=== PATIENT | female | born 1965 | race Caucasian/White ===

== ENCOUNTER → 2017-01-24 | Outpatient (CLI) | payer BC ==
[~2017-01-24] MED LIST: AZEL30SP NAE; CETI10TA84 PO; FERR1TAB23 PO; MTR600X PO; OXYC-57 PO
== END | disposition home or self-care (01) ==
LOC: C.PAPS 11:44
PROVIDERS: ATTEND Obstetrics & Gynecology
DX: Z01.419 Encounter for gynecological examination (general) (routine) without abnormal findings (principal)

== ENCOUNTER 2017-06-08 08:03 | Observation (INO) | payer BC ==
[2017-05-15 08:21] VITALS: BMI 35.0
[~2017-06-08] VITALS: Ht 160 cm; Wt 91.2 kg
[~2017-06-08 08:03] MED LIST changes: +ATROPINE SULFATE 0.1 MG/ML 5ML SYR IV PRN; +CEFAZOLIN 2000 MG/60 ML D5W 50 ML IV SCH; +EpHEDrine SULFATE INJ 50 MG/ML AMP IV PRN; +LACTATED RINGER'S 1000ML 1,000 ML IV SCH; -MTR600X PO; +ONDANSETRON INJ 2 MG/ML 2 ML VIAL IV PRN; -OXYC-57 PO
[2017-06-08] MEDS ORDERED: MIDAZOLAM HCL 1 MG/ML 2ML VIAL ONE (08:12)
[2017-06-08] MEDS ORDERED: FENTANYL CITRATE INJ 50 MCG/1 ML 2 ML VIAL ONE (08:12)
[2017-06-08] MEDS ORDERED: HYDROmorphone INJ 2 MG/ML SYR/VIAL ONE (08:13)
[2017-06-08 08:21] VITALS: BP 153/82; PULSE 69; TEMP 36.9; O2SAT 96; Ht 160 cm; Wt 91.2 kg
[2017-06-08] MEDS ORDERED: SCOPOLAMINE 1.5 MG TDSY TD ONE (09:08)
[2017-06-08 09:11] LABS: PREG INTERNAL NEGATIVE QC NEG CLEAR BACKGROUND; PREG INTERNAL POSITIVE QC POS CONTROL LINE
[2017-06-08] MEDS ORDERED: SCOPOLAMINE 1.5 MG TDSY TD SCH (09:15)
--- NOTE | 2017-06-08 09:27 | History & Physical Bridge Note ---
H&P Re-Evaluation Bridge Note: I have examined the patient, reviewed the History & Physical and in the interval since the performance of the History & Physical I have noted the following changes of clinical significance: No changes noted
[2017-06-08] MEDS ORDERED: BUPIVACAINE 0.5 % 5 MG/1 ML MPF 30ML VIAL ONE (10:03)
[2017-06-08] MEDS ORDERED: EpHEDrine SULFATE 50MG/5ML SYR ONE (11:58)
[2017-06-08] MEDS ORDERED: ONDANSETRON INJ 2 MG/ML 2 ML VIAL ONE (11:58)
[2017-06-08] MEDS ORDERED: PROPOFOL IV EMULSION 10 MG/ML 20 ML VIAL IV ONE (11:58)
[2017-06-08] MEDS ORDERED: LIDOCAINE HCL 2% 2 ML VIAL (20MG/ML) ONE (11:58)
[2017-06-08] MEDS ORDERED: GLYCOPYRROLATE INJ 0.2 MG/ML VIAL ONE ×2 (11:58→12:02)
[2017-06-08] MEDS ORDERED: METOCLOPRAMIDE HCL INJ 5 MG/ML 2 ML VIAL ONE (11:58)
[2017-06-08] MEDS ORDERED: NEOSTIGMINE METHYLSULFATE 5 MG/5 ML SYR ONE (11:58)
[2017-06-08] MEDS ORDERED: DiphenhydrAMINE HCL 50 MG/ML VIAL ONE (11:59)
[2017-06-08] MEDS ORDERED: LABETALOL HCL IV 5 MG/ML 20ML IV ONE (11:59)
[2017-06-08] MEDS ORDERED: ROCURONIUM BROMIDE 10 MG/ML 5 ML VIAL ONE (11:59)
[2017-06-08] MEDS ORDERED: LARYING-O-JET KIT (LTA) ONE ×2 (11:59)
[2017-06-08] MEDS ORDERED: METHYLENE BLUE 0.5% 10 ML VIAL ONE (12:02)
[2017-06-08] MEDS ORDERED: LACTATED RINGER'S 1000ML 1,000 ML IV SCH (12:11)
[2017-06-08] MEDS ORDERED: MAGNESIUM HYDROXIDE SUSP 30 ML UDC PO PRN (12:15)
[2017-06-08] MEDS ORDERED: IBUPROFEN 600 MG TAB PO PRN (12:15)
[2017-06-08] MEDS ORDERED: SIMETHICONE 80 MG CHEW PO PRN (12:15)
[2017-06-08] MEDS ORDERED: OXYCODONE/ACETAMINOPHEN 5-325 TAB PO PRN (12:15)
[2017-06-08] MEDS ORDERED: KETOROLAC TROMETHAMINE 30 MG/ML VIAL IV. PRN (12:15)
[2017-06-08] MEDS ORDERED: BISACODYL 10 MG SUPP PR PRN (12:15)
[2017-06-08] MEDS ORDERED: PROMETHAZINE HCL INJ 12.5 MG in SODIUM CHLORIDE 0.9% 50ML 50 ML IV PRN (12:15)
[2017-06-08] MEDS ORDERED: ONDANSETRON INJ 2 MG/ML 2 ML VIAL IV PRN (12:15)
[2017-06-08] MEDS ORDERED: ACETAMINOPHEN 325 MG TAB PO PRN (12:15)
[2017-06-08] MEDS ORDERED: PROMETHAZINE HCL INJ 25 MG in SODIUM CHLORIDE 0.9% 50ML 50 ML IV PRN (12:15)
[2017-06-08] MEDS ORDERED: MEPERIDINE HCL 50 MG/ML CARP IV PRN ×2 (12:15)
[2017-06-08] MEDS ORDERED: ZOLPIDEM TARTRATE 5 MG TAB PO PRN (12:15)
[2017-06-08] MEDS ORDERED: MTR600X PO (12:19)
[2017-06-08] MEDS ORDERED: OXYC-57 PO (12:19)
--- NOTE | 2017-06-08 12:19 | [facility] Post Operative Brief Note ---
Immediate Operative Summary Operative Date Jun 08, 2017. Pre-Operative Diagnosis Dysmenorrhea and fibroids Post-Operative Diagnosis same as preop Procedure(s) Performed Total laparoscopic hysterectomy for uterus greater than 250 grams, bilateral salpingectomy with use of Davinci. Surgeon Dr. Lott Account Resolution Expert Surgeon(s) Dr. Quiles Estimated Blood Loss 30 ml Findings Patient was taken back to the operating room prepped and draped in dorsolithotomy position in yellowfin Rad stirrups bladder drained with Dhillon catheter D care sewn into the cervix in the usual fashion uterus was approximately 12 weeks' size. Left changes supraumbilical incision made with scalpel usinghasson technique I was able to do a cut down into the peritoneal cavity without difficulty blunt-tipped Belle trocar placed balloon into the trocar was inflated CO2 gas used for insufflation findings Upper abdomen normal no sign of visceral organ injury Trendelenburg position then obtained uterus significantly enlarged mobile somewhat limited manipulation with the V care ureter seemed to follow a normal . 2 robotic ports were then placed under direct visualization on the right and one on the left left upper quadrant accessory port 11 mm blade was. Our #1 monopolar lizette in arm #2 Imani bipolar arm #3 Pro grasp. We remove the fallopian tubes on each side in the usual fashion through the accessory port and identified the ureter well away from the utero-ovarian left supply coagulated the utero-ovarian blood supply distal to the left ovary cut this with monopolar lizette. Round ligament was also coagulated and cut uterine vessels were then skeletonized bladder flap dissected away uterine vessels were quite elevated with the bipolar Imani taking care to avoid any close proximity to the ureter vessels were then cut the parous exact same process was used on the right once both vessels on uterine's were coagulated and cut made an anterior colpotomy with the monopolar lizette. Colpotomy was then completed uterus was able to be removed vaginally, this did require some manipulation of the uterus vaginally but we did not have to morcellate. Uterus came out intact no we deflated the Dhillon catheter prior to doing this. Of note methylene blue was given at this time. Sponge and a glove was placed in the vagina for pneumoperitoneum arm #1 became the M EGA needle forklift driver arm #2 the Cobra grasper. 2 well 90 day V lock suture was then placed in the accessory port cuff was closed from left to right back right to left suture was cut to the was no tail and there were at least 1 Center full-thickness vaginal mucosa bites. Needle removed through the accessory port after generous irrigation and suction Tisseel was applied hemostasis excellent the parous cystoscopy performed bladder appeared normal no sign of damage or injury good strong jets of blue dye from left and right ureter openings. Cystoscope removed new Dhillon catheter placed. At this stage the hemostasis was excellent Bell then removed from the vagina with sponge. We undocked the robot ports removed gas allowed to escape 0.5% Marcaine used to inject all the incisions fascia closed carefully with UR Vicryl Vicryl 0. Subcutaneous tissues reapproximated with 0 Vicryl on the umbilical and left upper quadrant incision 4-0 subcuticular Monocryl closure Dermabond applied sponge and instrument counts correct Specimens A: Uterus, cervix, bilateral tubes. Drains Dhillon Anesthesia General Complication(s) None Disposition Recovery Room / PACU
--- NOTE | 2017-06-08 12:20 | Discharge Instructions ---
Discharge Instructions Date of Service Jun 08, 2017. Admission Reason for Admission: Menorrhagia Discharge Discharge Diagnosis / Problem: menorrhagia Discharge Goals Goal(s): Routine recovery after surgery Activity Recommendations Activity Limitations: per Instructions/Follow-up section . Instructions / Follow-Up Instructions / Follow-Up POST OPERATIVE: BOWEL FUNCTION/MEDICATIONS: 1. Constipation pain and discomfort are the most common complaints 5-7 days after surgery. Points 2-6 address the things that can help. 2. Chewing gum can help stimulate the gut and help improve digestion and motility. 3. Milk of Magnesia 1-2 times per day until return of bowel function. 4. Colace is a stool softener that helps. Taking this 2-3 times per day until bowel function returns to normal is highly recommended. 5. Dulcolax is a laxative that may be used if several days have passed without a bowel movement. Alternatively Miralax may be used daily instead. 6. Drink plenty of fluids as this will also reduce constipation. 7. Narcotic pain medications will be prescribed by your physician. They are safe to use and we encourage you to use them. If you are not allergic, ibuprofen will also be prescribed. Many patients will be able to transition off of the narcotic medications to ibuprofen by postoperative day 3. ACTIVITY RECOMMENDATIONS: 1. Get plenty of rest and listen to your body. If you are tired, take a nap. 2. You may shower, but do not take a tub bath until you see your doctor at the 2 week post operative visit. 3. Absolutely NO intercourse and nothing in the vagina until you are examined by your doctor at the 6 week visit. At that visit it will be determined when such activities can be resumed. This can range from 6-12 weeks after your surgery depending on healing time. 4. The main physical activity in the first week should be walking. By the second week you can slowly increase activity. There are no limits on walking up and down stairs. 5. Do not lift more than 5-10 lbs for 4 weeks. Remember the "one-handed rule", i.e. if you can lift something with only one hand it's likely okay. 6. Minimize pharmaceutical worker like vacuuming and exercising for 4 weeks. "Overdoing it" can lead to incisions not healing, pain and vaginal bleeding , so again, listen to your body. 7. Driving can be resumed when you feel able. Do not drive within 24 hours of taking a narcotic medication. EXPECTATIONS: 1. Vaginal spotting, bleeding and discharge are common after surgery. There may even be an odor to the discharge which is often related to sutures used in the vagina. If you experience heavy vaginal bleeding, call the office number day or night [phone]. 2. Bladder discomfort is common after surgery from the catheter. This usually resolves in 1-2 weeks. 3. By the end of the 3rd or 4th week you should be feeling much better. It may take up to 6 weeks for your energy levels to return to normal. 4. Narcotic medications have side effects such as: dizziness, headache, nausea and/or vomiting. If you suspect your pain medication is causing problems, call our office and we may be able to prescribe an alternate medication. 5. The skin incisions are often covered with a liquid bandage. This will gradually peel off over time. CALL THE OFFICE IF YOU HAVE ANY OF THE FOLLOWIN. Temperature of 101 degrees or higher. 2. Severe abdominal or pelvic pain not relieved by pain medication. 3. Persistent nausea or vomiting. 4. Increased pain with urination or difficulty urinating. 5. Bright red bleeding that soaks more than 1 pad per hour. CONTACT PHONE NUMBERS: Main Office: [phone] Surgical Nurse: [phone] extension [phone] Avoid all tobacco products. If you need help to stop smoking, call [place]'s FREE QUITLINE at . This is a free call. Current Hospital Diet Patient's current hospital diet: Discharge Diet Recommended Diet: Regular Diet Procedures Procedures Performed: Total laparoscopic hysterectomy for uterus greater than 250 grams, bilateral salpingectomy with use of Davinci. Pending Studies Studies pending at discharge: no Medical Emergencies . Who to Call and When: Medical Emergencies: If at any time you feel your situation is an emergency, please call 911 immediately. . Non-Emergent Contact Non-Emergency issues call your: Department Of Mathematics Chair . . "Provider Documentation" section prepared by Yovani Lott. . VTE Core Measure Inpt VTE Proph given/why not?: Yazmin Lopez, [place]'s
[2017-06-08] MEDS ORDERED: TISSEEL FIBRIN SEALANT 4ML TOP ONE (12:23)
[2017-06-08] MEDS: FENTANYL CITRATE INJ 50 MCG/1 ML 2 ML VIAL IV PRN ×4 (12:39→12:55)
--- NOTE | 2017-06-08 12:47 | Anesthesiology Progress Note ---
Anesthesia Post Op Note Date & Time Jun 08, 2017 at 12:47 Vital Signs Pain Intensity: 0 Vital Signs Past 12 Hours Date Time Temp Pulse Resp B/P (MAP) Pulse Ox O2 Delivery O2 Flow Rate FiO2 06/08/17 12:30 59 16 147/79 98 Oxymask 10 06/08/17 12:22 36 70 16 143/75 99 Oxymask 10 06/08/17 08:21 36.9 69 18 153/82 (105) 96 Room Air Notes Mental Status: alert / awake / arousable, participated in evaluation Pt Amnestic to Procedure: Yes Nausea / Vomiting: adequately controlled Pain: adequately controlled Airway Patency, RR, SpO2: stable & adequate BP & HR: stable & adequate Hydration State: stable & adequate Anesthetic Complications: no major complications apparent
[2017-06-08] MEDS: HYDROmorphone INJ 1 MG/ML SYR IV PRN ×2 (13:00→13:05)
[2017-06-08 13:45] VITALS: BP 128/70; PULSE 56; TEMP 36.7; O2SAT 96
[2017-06-08 14:15] VITALS: BP 134/70; PULSE 57; TEMP 36.4; O2SAT 98
[2017-06-08 14:45] VITALS: BP 130/71; PULSE 66; TEMP 36.5; O2SAT 96
[2017-06-08] MEDS ORDERED: IV FLUIDS COMPLETED PRN (15:45)
[2017-06-08 15:47] VITALS: BP 124/70; PULSE 74; TEMP 36.5; O2SAT 95
[2017-06-08] MEDS: CHECK SCOPOLAMINE PATCH PLACEMENT SCH (16:00)
[2017-06-08 17:45] VITALS: BP 130/71; PULSE 72; TEMP 36.8; O2SAT 96
[2017-06-08] MEDS: DOCUSATE SODIUM 100 MG CAP PO SCH (21:31)
[2017-06-08] MEDS: OXYCODONE/ACETAMINOPHEN 5-325 TAB PO PRN (21:42)
[2017-06-09 00:05] VITALS: BP 121/60; PULSE 72; TEMP 37; O2SAT 95
[2017-06-09 03:15] VITALS: BP 114/59; PULSE 71; TEMP 37.1; O2SAT 96
[2017-06-09 06:42] LABS: BASO % 0.1 %; BASO ABS # 0.01 K/uL (0-0.2); COMPLETE YES; EOS % 0.4 %; HEMATOCRIT 32.5 % (37-47); IG% 0.3 %; LYMPH ABS # 2.03 K/uL (1.2-3.4); MEAN CORPUSCULAR HEMOGLOBIN 28.8 pg (25-34); MEAN CORPUSCULAR HGB CONC 32.3 g/dl (32-36); MEAN PLATELET VOLUME 9.7 fL (7.4-10.4); MONO % 8.8 %; NEUT % 73.4 %; PLATELET COUNT 368 K/uL (130-400); RED BLOOD COUNT 3.65 M/uL (4.2-5.4); WHITE BLOOD COUNT 11.97 K/uL (4.8-10.8)
[2017-06-09 07:45] VITALS: BP 116/70; PULSE 68; TEMP 36.9; O2SAT 96
[2017-06-09] MEDS: DOCUSATE SODIUM 100 MG CAP PO SCH (08:14)
[2017-06-09] MEDS: OXYCODONE/ACETAMINOPHEN 5-325 TAB PO PRN (08:15)
[2017-06-09] MEDS: CHECK SCOPOLAMINE PATCH PLACEMENT SCH ×2 (08:17)
[2017-06-09 08:54] VITALS: BP 116/70; PULSE 68; TEMP 36.9; O2SAT 96
--- NOTE | 2017-06-09 09:02 | OB/GYN Progress Note ---
STEEL ENGRAVER Progress Note Date of Service Jun 09, 2017. Subjective conversation w/ patient, physical exam Ambulation: ambulating normally Voiding: no voiding problems Passing Gas: Yes Diet Tolerance: Regular Diet Pain: controlled Review of Systems Constitutional: No problem reported Respiratory: No problem reported Cardiac: No problem reported Breast: No problem reported Abdomen: No problem reported Female : No problem reported Objective Vital Signs Date Time Temp Pulse Resp B/P (MAP) Pulse Ox O2 Delivery O2 Flow Rate FiO2 06/09/17 08:54 36.9 68 20 96 Room Air 06/09/17 07:45 Room Air 06/09/17 07:45 36.9 68 20 116/70 (85) 96 Room Air 06/09/17 03:15 37.1 71 20 114/59 (77) 96 Room Air 06/09/17 00:05 37.0 72 18 121/60 (80) 95 Room Air 06/09/17 00:05 95 Room Air 06/08/17 17:45 36.8 72 20 130/71 (90) 96 Room Air 06/08/17 17:45 96 Room Air 06/08/17 15:47 36.5 74 14 124/70 (88) 95 Nasal Cannula 1.0 06/08/17 14:45 36.5 66 18 130/71 (90) 96 Room Air 06/08/17 14:15 36.4 57 18 134/70 (91) 98 Room Air 06/08/17 13:45 96 Nasal Cannula 2.0 06/08/17 13:45 36.7 56 16 128/70 (89) 96 Nasal Cannula 2.0 06/08/17 13:45 96 Nasal Cannula 2.0 06/08/17 13:20 36.2 52 16 149/81 95 Room Air 06/08/17 13:10 36.2 63 16 122/71 95 Room Air 06/08/17 13:00 47 16 157/77 99 Room Air 06/08/17 12:50 51 16 135/74 98 Room Air 06/08/17 12:40 53 16 153/81 100 Oxymask 10 06/08/17 12:30 59 16 147/79 98 Oxymask 10 06/08/17 12:22 36 70 16 143/75 99 Oxymask 10 Physical Exam General Appearance: WELL-APPEARING, NO APPARENT DISTRESS Respiratory/Chest: no respiratory distress Cardiovascular: regular rate, rhythm Abdomen: non tender, soft Incision Description: Clean, Dry & Intact Extremities: normal inspection Laboratory Results Last 24 Hours Test 06/08/17 20:09 06/09/17 06:16 Hemoglobin 11.3 g/dL 10.5 g/dL Hematocrit 34.0 % 32.5 % White Blood Count 11.97 K/uL Red Blood Count 3.65 M/uL Mean Corpuscular Volume 89.0 fL Mean Corpuscular Hemoglobin 28.8 pg Mean Corpuscular Hemoglobin Concent 32.3 g/dl Platelet Count 368 K/uL Mean Platelet Volume 9.7 fL Neutrophils (%) (Auto) 73.4 % Lymphocytes (%) (Auto) 17.0 % Monocytes (%) (Auto) 8.8 % Eosinophils (%) (Auto) 0.4 % Basophils (%) (Auto) 0.1 % Neutrophils # (Auto) 8.80 K/uL Lymphocytes # (Auto) 2.03 K/uL Monocytes # (Auto) 1.05 K/uL Eosinophils # (Auto) 0.05 K/uL Basophils # (Auto) 0.01 K/uL RDW Standard Deviation 44.2 fL RDW Coefficient of Variation 13.4 % Immature Granulocyte % (Auto) 0.3 % Immature Granulocyte # (Auto) 0.03 K/uL Assessment and Plan Post-Op Day Number: 1 Continue Routine Care: POD#1 s/p robot-assisted laparoscopic hysterectomy Doing well postop. Vitals, labs stable. Feeling well. Discharge to home today. Discharge instructions reviewed. F/u 3w in office with Dr Lott.
--- NOTE | 2017-06-09 13:49 | DISCHARGE SUMMARY ---
Maria A had a total laparoscopic hysterectomy for an enlarged uterus 06/08/2017. Her surgery was uncomplicated. Her course in hospital was without difficulty. By postop day #1, she met criteria. At that time she was ambulating, tolerating an oral diet, passing flatus. No vaginal bleeding, no extremity pain. She was voiding well. PHYSICAL EXAMINATION: VITAL SIGNS: Stable. She was afebrile. Incision is clean, dry and intact. EXTREMITY EXAMINATION: Negative. IMPRESSION AND PLAN: Hemoglobin 10.5. Given Percocet and Motrin and told to follow up in the office. Discharge instructions reviewed.
== END 2017-06-09 09:35 | disposition home or self-care (01) ==
LOC: C.ACU 08:03 → C.MS4N 08:30
PROVIDERS: ADMIT Obstetrics & Gynecology; ATTEND Obstetrics & Gynecology
DX: D25.9 Leiomyoma of uterus, unspecified (principal); N83.8 Other noninflammatory disorders of ovary, fallopian tube and broad ligament; I10 Essential (primary) hypertension; E78.5 Hyperlipidemia, unspecified; Z87.891 Personal history of nicotine dependence; Z79.899 Other long term (current) drug therapy
CPT/HCPCS: 58573; S2900

== ENCOUNTER → 2017-09-14 | Outpatient (CLI) | payer BC ==
[~2017-09-14] MED LIST changes: -ATROPINE SULFATE 0.1 MG/ML 5ML SYR IV PRN; -CEFAZOLIN 2000 MG/60 ML D5W 50 ML IV SCH; -EpHEDrine SULFATE INJ 50 MG/ML AMP IV PRN; -FERR1TAB23 PO; -LACTATED RINGER'S 1000ML 1,000 ML IV SCH; +MTR600X PO; -ONDANSETRON INJ 2 MG/ML 2 ML VIAL IV PRN; +OXYC-57 PO
--- NOTE | 2017-09-14 15:37 | MAMMOGRAPHY REPORT ---
BILATERAL DIGITAL SCREENING MAMMOGRAM TOMOSYNTHESIS WITH CAD: 09/14/2017 CLINICAL HISTORY: Routine screening. Patient has no complaints. TECHNIQUE: Breast tomosynthesis in addition to standard 2D mammography was performed. Current study was also evaluated with a Computer Aided Detection (CAD) system. COMPARISON: Comparison is made to exams dated: 09/08/2016 mammogram, 09/03/2015 mammogram, 08/28/2014 mammogram, 08/15/2013 mammogram, 08/02/2012 mammogram, and 07/26/2011 ultrasound - [facility]. BREAST COMPOSITION: The tissue of both breasts is heterogeneously dense, which may obscure small mas ses. FINDINGS: No suspicious masses, calcifications, or areas of architectural distortion are noted in ei ther breast. There has been no significant interval change compared to prior exams. Scattered bilater al benign-appearing calcifications are not significantly changed. IMPRESSION: ACR BI-RADS CATEGORY 2: BENIGN There is no mammographic evidence of malignancy. A 1 year screening mammogram is recommended. The pa tient will receive written notification of the results. Approximately 10% of breast cancers are not detected with mammography. A negative mammographic report should not delay biopsy if a clinically suggestive mass is present. Sneha Lehman M.D. /:09/14/2017 08:24:13 Healthcare Social Worker: Zenobia FOSTER)(M), [facility] letter sent: Normal 1/2 BI-RADS Code: ACR BI-RADS Category 2: Benign
== END | disposition home or self-care (01) ==
LOC: C.MAMM 08:05
PROVIDERS: ATTEND Obstetrics & Gynecology
DX: Z12.31 Encounter for screening mammogram for malignant neoplasm of breast (principal)

== ENCOUNTER → 2017-11-16 | Day surgery (SDC) | payer BC, OTHER ==
[2017-10-24 13:12] VITALS: Ht 160 cm; Wt 90.0 kg
[~2017-11-16] VITALS: Ht 160 cm; Wt 90.0 kg
[~2017-11-16] MED LIST changes: +ATROPINE SULFATE 0.1 MG/ML 5ML SYR IV PRN; +EpHEDrine SULFATE INJ 50 MG/ML AMP IV PRN; +HYDR25TA5 PO; +IBUP-1050 PO; +LIDOCAINE HCL 2% 2 ML VIAL (20MG/ML) ONE; -MTR600X PO; -OXYC-57 PO; +PROPOFOL IV EMULSION 10 MG/ML 20 ML VIAL IV ONE; +SODIUM CHLORIDE 0.9% 500ML 500 ML IV ONE
--- NOTE | 2017-11-16 08:39 | Endo History and Physical ---
History & Physical Date of Service: Nov 16, 2017. Chief Complaint: Screening Referring Physician: Pro History of Present Illness 52 yo CF who presents for screening colonoscopy. Past Surgical History Hx Cardiac Surgery: No Hx Internal Defibrillator: No Hx Pacemaker: No Hx Abdominal Surgery: Yes (HYSTERECTOMY) Hx of Implantable Prosthesis: No Hx Post-Op Nausea and Vomiting: No Hx Cancer Surgery: No Hx Thoracic Surgery: No Hx Orthopedic: Yes (R CTR) Hx Urinary Tract Surgery: No Family History None Social History Smoking Status: Former Smoker Hx Substance Use: No Hx Alcohol Use: Yes (SELDOM) Allergies Coded Allergies: Corticosteroids (Verified Allergy, Severe, heart palpitations, dizziness, sweating, 11/16/17) Current Medications Reported Home Medications Medications Dose Route/Sig Max Daily Dose Days Date Category Advil (Ibuprofen) 200 Mg Tab 400 Mg PO PRN 10/24/17 Reported Hydrochlorothiazide 25 Mg Tab 25 Mg PO QAM 10/24/17 Reported Dymista (Azelastine Hcl-Fluticasone Pro) 1 Spr Spr 2 [place] LINDA BID 05/15/17 Reported Zyrtec (Cetirizine HCl) 10 Mg Tab 10 Mg PO QAM 05/15/17 Reported Vital Signs Weight (Kilograms): 90 Height (Feet): 5 Height (Inches): 3 Date Time Temp Pulse Resp B/P (MAP) Pulse Ox O2 Delivery O2 Flow Rate FiO2 11/16/17 08:30 36.8 72 20 140/85 (103) 97 Room Air Physical Exam General Appearance: WD/WN, no apparent distress Respiratory/Chest: Auscultation: breath sounds normal Cardiovascular: Heart Auscultation: RRR Abdomen: Bowel Sounds: normal Inspection & Palpation: soft, non-distended, no tenderness, guarding & rebound Assessment and Plan Assessment: 52 yo CF who presents for screening colonoscopy. Plan: Proceed with colonoscopy.
--- NOTE | 2017-11-16 09:07 | GI REPORT ---
Procedure Date: 11/16/2017 8:46 AM Procedure: Colonoscopy Indications: Screening for colorectal malignant neoplasm Medicines: Monitored Anesthesia Care Complications: No immediate complications. Estimated Blood Loss: Estimated blood loss: none. Procedure: Pre-Anesthesia Assessment: - Prior to the procedure, a History and Physical was performed, and patient medications and allergies were reviewed. The patient's tolerance of previous anesthesia was also reviewed. The risks and benefits of the procedure and the sedation options and risks were discussed with the patient. All questions were answered, and informed consent was obtained. Prior Anticoagulants: The patient has taken no previous anticoagulant or antiplatelet agents. ASA Grade Assessment: II - A patient with mild systemic disease. After reviewing the risks and benefits, the patient was deemed in satisfactory condition to undergo the procedure. After I obtained informed consent, the scope was passed under direct vision. Throughout the procedure, the patient's blood pressure, pulse, and oxygen saturations were monitored continuously. The On-site loaner was introduced through the anus and advanced to the terminal ileum. The colonoscopy was performed without difficulty. The patient tolerated the procedure well. The quality of the bowel preparation was poor. The terminal ileum, ileocecal valve, appendiceal orifice, and rectum were photographed. Findings: The perianal and digital rectal examinations were normal. A large amount of stool was found in the entire colon, interfering with visualization. Lavage of the area was performed using a large amount of normal saline, resulting in incomplete clearance with continued poor visualization. Non-bleeding internal hemorrhoids were found during retroflexion. The hemorrhoids were small. Impression: - Preparation of the colon was poor. - Stool in the entire examined colon. - Non-bleeding internal hemorrhoids. - No specimens collected. Recommendation: - Resume previous diet. - Continue present medications. - Repeat colonoscopy in 1 year because the bowel preparation was poor. - Return to primary care physician as previously scheduled. Flaco Jamison DO 11/16/2017 9:06:41 AM This report has been signed electronically. Note Initiated On: 11/16/2017 8:46 AM I attest to the content of the Intraoperative Record and orders documented therein, exceptions below
--- NOTE | 2017-11-16 09:14 | Discharge Instructions ---
Endoscopy Patient Instructions Date / Procedure(s) Performed Nov 16, 2017. Colonoscopy Allergy Information Coded Allergies: Corticosteroids (Verified Allergy, Severe, heart palpitations, dizziness, sweating, 11/16/17) Discharge Date / Findings Nov 16, 2017. Poor bowel prep Internal hemorrhoids Medication Instructions OK to resume all medications today as prescribed Reported Home Medications Medications Dose Route/Sig Max Daily Dose Days Date Category Advil (Ibuprofen) 200 Mg Tab 400 Mg PO PRN 10/24/17 Reported Hydrochlorothiazide 25 Mg Tab 25 Mg PO QAM 10/24/17 Reported Dymista (Azelastine Hcl-Fluticasone Pro) 1 Spr Spr 2 [place] LINDA BID 05/15/17 Reported Zyrtec (Cetirizine HCl) 10 Mg Tab 10 Mg PO QAM 05/15/17 Reported Provider Instructions Activity Restrictions - No exercising or heavy lifting for 24 hours. - Do not drink alcohol the day of the procedure. - Do not drive a car or operate machinery until the day after the procedure. - Do not make any important decisions or sign important papers in 24 hours after the procedure. Following Day: - Return to full activity which may include returning to work/school. Diet Start your diet with liquids and light foods (jello, soup, juice, toast). Then eat your usual diet if not nauseated. Treatment For Common After Affects For mild abdominal pain, bloating, or excessive gas: - Rest - Eat lightly - Lie on right side Follow-Up Information Follow-up with Pro as scheduled Anesthesia Information What You Should Know You have had a procedure that required some medicine to reduce anxiety and discomfort. This treatment is called moderate sedation. After receiving the treatment, you may be sleepy, but you will be able to breathe on your own. The effects of the treatment may last for several hours. Follow these instructions along with Activity/Diet recommendations noted above: * Do NOT do anything where dizziness or clumsiness would be dangerous. * Rest quietly at home today, then you can be up and about tomorrow. * Have a responsible person stay with you the rest of today. * You may have had an I.V. today. If so, you may take the dressing off later today. Recommendations Call your doctor if: * Trouble breathing * Continuous vomiting for more than 24 hours * Temperature above 101 degrees * Severe abdominal pain or bloating * Pain not relieved by pain medicine ordered * There is increased drainage or redness from any incision * A large amount of rectal bleeding greater than 2-3 tablespoons. (If you had a polyp/s removed or have hemorrhoids, a small amount of blood - from the rectum is to be expected.) * You have any unanswered questions or concerns. IN THE EVENT OF A SERIOUS EMERGENCY, GO TO THE NEAREST EMERGENCY ROOM Your discharge instructions were prepared by provider Flaco Jamison. Patient Instructions Signature Page Maria A Bishop Patient (or Guardian) Signature/Date: I have read and understand the instructions given to me by my caregivers. Caregiver/RN/Doctor Signature/Date: The above-named patient and/or guardian has received patient instructions on this date. + Original Patient Signature Page (only) stays with chart. Please make copy for patient.
--- NOTE | 2017-11-16 09:20 | Anesthesiology Progress Note ---
Anesthesia Post Op Note Date & Time Nov 16, 2017 at 09:20 Vital Signs Pain Intensity: 0 Vital Signs Past 12 Hours Date Time Temp Pulse Resp B/P (MAP) Pulse Ox O2 Delivery O2 Flow Rate FiO2 11/16/17 09:08 62 16 129/75 (93) 98 Room Air 11/16/17 08:30 36.8 72 20 140/85 (103) 97 Room Air Notes Mental Status: alert / awake / arousable, participated in evaluation Pt Amnestic to Procedure: Yes Nausea / Vomiting: adequately controlled Pain: adequately controlled Airway Patency, RR, SpO2: stable & adequate BP & HR: stable & adequate Hydration State: stable & adequate Anesthetic Complications: no major complications apparent
[2017-11-16 09:38] VITALS: BP 147/79; PULSE 63; O2SAT 100
== END | disposition home or self-care (01) ==
LOC: C.GI 08:11
PROVIDERS: ATTEND Internal Medicine
DX: Z12.11 Encounter for screening for malignant neoplasm of colon (principal); K64.8 Other hemorrhoids; Z87.891 Personal history of nicotine dependence; I10 Essential (primary) hypertension